=== PATIENT | female | born 1980 | race Caucasian/White ===

== ENCOUNTER 2016-09-24 19:02 | Emergency (ER) | payer SELFPAY ==
[2016-09-24 20:23] VITALS: TEMP 98.7; BMI 27.7
--- NOTE | 2016-09-24 21:53 | DIRPT ---
CLINICAL DATA: Cough with headaches, body aches, chills and sore throat for 3 days. Current smoker. EXAM: CHEST 2 VIEW COMPARISON: 10/10/2012. FINDINGS: The heart size and mediastinal contours are stable. There is chronic central airway thickening suspicious for bronchitis. No superimposed airspace disease, edema or significant pleural effusion identified. The bones appear unchanged. IMPRESSION: Central airway thickening consistent with bronchitis. No evidence of pneumonia. Electronically Signed By: Radu Adames M.D. On: 09/24/2016 21:51
[2016-09-24] MEDS ORDERED: ALBUTEROL 6.7 GM MDI INH ONE (21:57)
[2016-09-24] MEDS ORDERED: Albuterol/Ipratropium Neb 3 ML NEB NEB ONE (21:57)
[2016-09-24] MEDS ORDERED: METHYLPREDNISOLONE 125 MG/2 ML VIAL IM ONE (21:57)
[2016-09-24] MEDS ORDERED: AZITHROMYCIN 250 MG TAB PO ONE (21:58)
--- NOTE | 2016-09-24 22:20 | EDPRACDOC ---
- General Information Chief Complaint: Flu-Like Symptoms Stated Complaint: FLU-LIKE SYMPTOMS Time Seen by Provider: 09/24/16 21:29 Information Source: Patient Mode Of Arrival: Car Home Medications: Home Medications No Home Medications 0 NA DIR 04/28/13 Azithromycin [Zithromax 200 mg/5 ml suspension] 5 ml PO DAILY #30 ml 09/24/16 Prednisone [Deltasone, Orasone] 20 mg PO BID #12 tab 09/24/16 Allergies/Adverse Reactions: Allergies Allergy/AdvReac Type Severity Reaction Status Date / Time No Known Allergies Allergy Verified 04/28/13 07:48 - History of Present Illness Onset: 2 days ago HPI: PT PRESENTS WITH COUGH, FEVER, BODY ACHES, NAUSEA AND VOMITING FOR THE PAST COUPLE OF DAYS. Current Symptoms: Reports: Cough, Fever, Sore Throat, Nausea, Vomiting Shortness of Breath: Mild Cough: Reports: Non-productive Rhinorrhea: Reports: Clear Ear Symptoms: Reports: None Fever Severity/Quality: Reports: subjective Oral Intake: Decreased Urinary Output: Normal Relevant History of: None ED Past Medical History - History Reviewed Yes Nurses notes reviewed and agree except as marked - Patient Medical History Psychological History: Denies: Depression Surgical History: Denies: Hysterectomy EDM Review of Systems - Review of Systems ROS Negative Except as Marked: Yes All systems reviewed and were negative except as marked - Physical Exam Constitutional: Alert. negative: Well appearing Oriented to: Time, Person, Place Last recorded Vital Signs: Last Vital Signs Temp 98.7 F 09/24/16 20:21 Pulse 96 09/24/16 20:21 Resp 20 09/24/16 20:21 BP 151/97 09/24/16 20:21 Pulse Ox 98 09/24/16 20:21 Oxygen Pulse Oxygen Saturation 98 O2 Device Room Air Oxygen Flow Rate Fraction of Inspired Oxygen ( FIO2) - HEENT Head: Normal ( normocephalic) Eye Exam: Normal (PERRL, EOMI, Sclera white) Oropharynx: Red, Tonsillar Hypertrophy Tympanic Membrane: Normal Nose: No Symptoms Reported (septum midline) Neck: Normal (FROM, trachea at midline) - Respiratory/Cardiovascular Respiratory: Wheezes Cardiovascular: Normal (RRR without murmur, gallop or rub) - GI Auscultation: Normal (NABS) Palpation: Normal (Soft,No rebound or guarding, non distended) Tenderness: Non tender Rios's Sign: Negative Rectal Exam: Deferred - Musculoskeletal Back: Normal (Non-Tender) Extremities: Normal (Normal tone, Pulses 2+ No cyanosis or edema, FROM) - Integumentary Skin: Normal, Warm, Dry Lymphatics: Normal (no adenopathy) - Neurologic Memory Impaired: Normal Motor Function: Normal (Normal tone, Pulses 2+ No cyanosis or edema, FROM) Cranial Nerve: Normal (CN II-X11 intact sensation, strength 5/5) Cerebellar: Normal Mood Description: Normal Perception: Normal - Differential Diagnosis Bronchitis - Results Microbiology 09/24/16 21:39 Group A Streptococcus Rapid Screen - Final Throat - Rapid Strep NEGATIVE ("NORMAL" value = "NEGATIVE".) 09/24/16 20:21 Influenza Type A Antigen Screen - Final Nasal Washing/Aspirate Or Swab NEGATIVE Please note: A NEGATIVE result does not exclude an influenza virus infection. It is a presumptive result and, if required, confirmation should be done using either a virus culture or an FDA-cleared influenza A&B molecular assay. ("NORMAL" value = "NEGATIVE".) Influenza Type B Antigen Screen - Final NEGATIVE Please note: A NEGATIVE result does not exclude an influenza virus infection. It is a presumptive result and, if required, confirmation should be done using either a virus culture or an FDA-cleared influenza A&B molecular assay. ("NORMAL" value = "NEGATIVE".) Decision Time to Discharge: 22:20 - Departure Disposition: Home Condition: Stable Final Diagnosis: Acute bronchitis Instructions: Acute Bronchitis (ED) Education/Counseling Given To: Patient Education/Counseling Given Regarding: Diagnosis, Treatment, Prognosis, Follow Up Referrals: None,No Provider [Primary Care Provider] - One Week Jerome Montalvo MD [Staff Physician] - One Week Prescriptions: New Azithromycin [Zithromax 200 mg/5 ml suspension] 5 ml PO DAILY #30 ml Prednisone [Deltasone, Orasone] 20 mg PO BID #12 tab Discontinued Cyclobenzaprine HCl [Flexeril] 10 mg PO Q8H PRN #30 tab PRN Reason: Muscle Spasms Ibuprofen Tablet [Motrin] 800 mg PO TID #30 tab Hydrocodone/Acetaminophen [Vicodin 5-300 mg Tablet] 1 tab PO Q6H PRN #30 tab PRN Reason: Pain No Action No Home Medications 0 NA DIR Additional Instructions: INCREASE FLUID INTAKE. FOLLOW UP WITH PRIMARY CARE PROVIDER NEXT WEEK. TAKE ALL ANTIBIOTICS PRESCRIBED. RETURN TO THE ED FOR WORSENING SYMPTOMS OR CONCERNS.
[2016-09-24 22:44] VITALS: BP 144/82; PULSE 92
== END 2016-09-24 22:38 | disposition home or self-care (01) ==
LOC: ED 19:02 → EDMC 22:38
DX: J20.9 Acute bronchitis, unspecified (principal)
CPT/HCPCS: 71020; 87804; 87880; 94640; 96372; 99282; J2930; J3490; J7620